=== PATIENT | female | born 1985 | race American Indian/Alaskan Native ===

== ENCOUNTER 2017-12-27 16:40 | Emergency (ER) | payer BC ==
[~2017-12-27] VITALS: Ht 175.3 cm; Wt 63.5 kg
[2017-12-27 16:40] VITALS: TEMP 97.7
[2017-12-27] MEDS ORDERED: ADDERALL20 MG PO (16:48)
[2017-12-27 18:05] VITALS: BP 118/80
== END 2017-12-27 18:05 | disposition home or self-care (01) ==
LOC: ED 16:40
DX: S01.85XA Open bite of other part of head, initial encounter (principal); W54.0XXA Bitten by dog, initial encounter
CPT/HCPCS: 99282; J7040